=== PATIENT | male | born 1995 | race Caucasian/White ===

== ENCOUNTER 2017-11-12 01:00 | Emergency (ER) | payer OTHER ==
--- NOTE | 2017-11-12 02:43 | ER Document Report ---
ED General - General Chief Complaint: Laceration Stated Complaint: ARM INJURY Time Seen by Provider: 11/12/17 02:00 Notes: Patient is a 22-year-old male without past medical history, obtain on his tetanus immunization who presents with a laceration to his left lateral forearm. He states that he was in an argument with his , was trying to leave the house but his foot got stuck in the door. He states that he tried to push the door back open but instead accidentally punched through the window on the door. He states that he sustained a laceration to his left lateral forearm. He notes that the bleeding was controlled with direct pressure but he continues to have a dull, burning, stinging pain to the area. Touching the area worsens the pain. Nothing improves the pain. He denies any history of similar injuries. No additional injury tonight. TRAVEL OUTSIDE OF THE [place] IN LAST 30 DAYS: No - Related Data Allergies/Adverse Reactions: No Known Allergies Allergy (Unverified 11/12/17 01:07) Past Medical History - General Information source: Patient - Social History Smoking Status: Current Every Day Smoker Chew tobacco use (# tins/day): No Frequency of alcohol use: Social Drug Abuse: None Lives with: Spouse/Significant other Family History: Reviewed & Not Pertinent Patient has suicidal ideation: No Patient has homicidal ideation: No Renal/ Medical History: Denies: Hx Peritoneal Dialysis Review of Systems - Review of Systems Notes: Constitutional: Negative for fever. HENT: Negative for sore throat. Eyes: Negative for visual changes. Cardiovascular: Negative for chest pain. Respiratory: Negative for shortness of breath. Gastrointestinal: Negative for abdominal pain, vomiting or diarrhea. Genitourinary: Negative for dysuria. Musculoskeletal: Negative for back pain. Skin: Positive for laceration to the left arm Neurological: Negative for headaches, weakness or numbness. 10 point ROS negative except as marked above and in HPI. Physical Exam - Vital signs Interpretation: Normal Notes: PHYSICAL EXAMINATION: GENERAL: Well-appearing, well-nourished and in no acute distress. HEAD: Atraumatic, normocephalic. EYES: sclera anicteric, conjunctiva are normal. ENT: Moist mucous membranes. NECK: Normal range of motion LUNGS: Normal work of breathing HEART: 2+ radial pulses bilaterally EXTREMITIES: no pitting or edema. No cyanosis. NEUROLOGICAL: RMU motor and sensory distribution is intact bilaterally PSYCH: Normal mood, normal affect. SKIN: Warm, Dry, normal turgor, 4 cm horizontal laceration over the lateral aspect of the central left forearm, small skin avulsion to the central left forearm Course - Re-evaluation Re-evalutation: 11/12/17 02:42 Patient presents with a 4 cm superficial laceration to the left lateral forearm sustained after he punched through a glass window. His tetanus is already up-to -date. RMU motor and sensory distribution is intact. The wound was irrigated and then subsequently closed with Dermabond without complication. At this time will discharge with return precautions and follow-up recommendations. Verbal discharge instructions given a the bedside and opportunity for questions given. Medication warnings reviewed. Patient is in agreement with this plan and has verbalized understanding of return precautions and the need for primary care follow-up in the next 24-72 hours. Procedures - Laceration/Wound Repair Left Arm Wound length (cm): 4 Wound's Depth, Shape: Superficial Laceration pre-procedure: Sterile PPE donned, Syed applied Wound explored: Clean Irrigated w/ Saline (mLs): 500 Wound Debrided: Minimal Wound Repaired With: Dermabond Post-procedure wound care: Sterile dressing applied Post-procedure NV exam normal: Yes Complications: No Discharge - Discharge Clinical Impression: Laceration of left forearm Qualifiers: Encounter type: initial encounter Qualified Code(s): S51.812A - Laceration without foreign body of left forearm, initial encounter Condition: Good Disposition: HOME, SELF-CARE Additional Instructions: The wound has been closed with glue. Please do not pick at the at the wound. Do not cover it with any kind of antibiotic ointment as this can cause the glue to loosen. Return immediately if you develop spreading redness around the wound , pus from the wound, worsening pain, or a fever of >100.4. Keep the area clean and dry.
== END 2017-11-12 03:08 | disposition home or self-care (01) ==
LOC: ER 01:00
PROC: 0HQEXZZ Repair Left Lower Arm Skin, External Approach (ICD-10-PCS; principal; 2017-11-12)
DX: S51.812A Laceration without foreign body of left forearm, initial encounter (principal); W25.XXXA Contact with sharp glass, initial encounter; Y92.009 Unspecified place in unspecified non-institutional (private) residence as the place of occurrence of the external cause; F17.200 Nicotine dependence, unspecified, uncomplicated
CPT/HCPCS: 99282